=== PATIENT | female | born 1985 | race Caucasian/White ===

== ENCOUNTER → 2017-08-14 | Outpatient (REF) | payer OTHER | LOC: M SFHCLERA 11:26 | PROVIDERS: ATTEND Physician Assistant | DX: L50.9 Urticaria, unspecified (principal) ==

== ENCOUNTER → 2019-01-30 | Outpatient (REF) | payer OTHER | LOC: M SFHCLERA 12:42 | PROVIDERS: ATTEND Physician Assistant | DX: L50.9 Urticaria, unspecified (principal) ==